=== PATIENT | male | born 1980 | race Caucasian/White ===

== ENCOUNTER 2019-10-24 16:17 | Emergency (ER) | payer OTHER, SELFPAY ==
[2019-10-24] VITALS (10 sets, daily range): BP systolic 138–150; BP diastolic 89–100; PULSE 91–100; RESP 14–21; TEMP 37.1; O2SAT 98–100
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
--- NOTE | 2019-10-24 16:30 | W.ED.GENAD ---
Discharge Plan Disposition Patient Disposition: HOME Condition: Stable Discharge Details Chief Complaint: Orthopedic Clinical Impression: Anterior shoulder dislocation Primary Care Provider: [place],Local ED Provider: Larry Pradhan Home Meds and New Rx's Prescriptions: Continued aspirin [Aspir-Low] 81 mg Tablet,Delayed Release (Dr/Ec) 81 mg PO DAILY RF: 0 lisinopril 5 mg Tablet 5 mg PO DAILY RF: 0 Multi-Vitamin HP/Minerals Capsule 1 cap PO DAILY RF: 0 Vitamin D3 4,000 unit Capsule 500 unit PO DAILY RF: 0 carvedilol 25 mg Tablet 12.5 mg PO BID RF: 0 Discharge Instructions Instructions: Shoulder Dislocation (ED) Additional Instructions: Take-home pack of Percocet given, may cause drowsiness and/or constipation. Please wear sling until reevaluation with orthopedics or your primary care provider in the next 3 to 5 days. Cool compresses as tolerated. [id number] Motrin as directed please watch for new or worsening symptoms and return to the ER for any concerns. An x-ray of your films were given with you today. Bring those to your next appointment Medical Decision Making <CANDE Lyles - Last Filed: 10/24/19 21:03> 39-year-old gentleman who fell onto his shoulder roughly 1 hour ago while skiing. No other injuries. Neuro, vascular, tendon intact. Examination is suspicious for dislocation. Will obtain x-ray and give 1 mg IM Dilaudid. X-ray confirms anterior dislocation. Discussed options with patient and family. He reports his pain is slightly better but now his shoulder feels tight and/or spasming. 10 IM Valium given. Patient was open to manipulation without conscious sedation initially. Attempted both external rotation and later a weighted traction with scapular manipulation, both were unsuccessful. Given this, discussed case with Dr. Gonsales who performed a conscious sedation. Please see his note. Patient and family had no additional questions or concerns after the reduction was completed. He did not want a prescription for any pain medication but was open to a take-home pack for this evening. A CD with his imaging was provided so he may bring this to his primary care provider and/or orthopedic provider in [place]. It should be noted that patient was discharged from the ER prior to virtual radiology reading the post reduction film. The postreduction film was read officially as possible displaced acute fracture fragment overlying the scapula, consider CT for further characterization. I was able to speak with both patient and his on the phone and relayed these findings. Emergent CT not indicated here in the ER, would not change the overall outcome and/or disposition this evening. Patient and understand this and will follow-up as an outpatient. They were encouraged to return to the ER for any new or worsening symptoms. Imaging Data Radiologic Study: Attestation: I personally reviewed and interpreted this imaging study as follows: Imaging: X-Ray My impression: Anterior dislocation HPI <CANDE Lyles - Last Filed: 10/24/19 21:03> General Mode of arrival: ambulatory. Date/Time Provider Initiated Documentation: 10/24/19 16:24. Limitations to Documentation: no limitations. Information obtained by: patient. HPI Narrative: 39-year-old gentleman with a history of colorectal cancer and mitral valve replacement presents having fallen while skiing landing on his right shoulder approximately 1 hour ago. He was wearing a helmet and has no other injuries. Patient is right-hand dominant. He reports moderate pain at rest, severe with movement. He did have some tingling in his right arm but there is no more tingling. Patient is able to move his elbow, wrist, fingers without difficulty. Related Data Home Medications Medication Instructions Recorded Confirmed Multi-Vitamin HP/Minerals 1 cap PO DAILY 10/24/19 10/24/19 Vitamin D3 500 unit PO DAILY 10/24/19 10/24/19 aspirin [Aspir-Low] 81 mg PO DAILY 10/24/19 10/24/19 carvedilol 12.5 mg PO BID 10/24/19 10/24/19 lisinopril 5 mg PO DAILY 10/24/19 10/24/19 Allergies Allergy/AdvReac Type Severity Reaction Status Date / Time No Known Allergies Allergy Unverified 10/24/19 16:22 General Stated Complaint: Orthopedic NGHIA: 3 Review of Systems <CANDE Lyles - Last Filed: 10/24/19 21:03> Constitutional Constitutional: Denies fatigue, Denies headache(s) and Denies weakness Eyes Eyes: Denies change in vision ENT Ears, Nose, Mouth, and Throat: Denies headache(s) Cardiovascular Cardiovascular: Denies chest pain and Denies dyspnea Respiratory Respiratory: Denies dyspnea Gastrointestinal Gastrointestinal: Denies abdominal pain, Denies nausea and Denies vomiting Musculoskeletal Musculoskeletal: Denies back pain and Reports tingling (At the time of injury, resolved now) Integumentary/Breasts Skin/Breast: Denies rash Neurologic Neurologic: Denies headache(s), Reports tingling (At the time of injury, resolved now), Denies paresthesias and Denies weakness Endocrine Endocrine: Denies fatigue PFSH <CANDE Lyles - Last Filed: 10/24/19 21:03> Social History Smoking/Tobacco Use Status: Never Alcohol Intake: current Alcohol Intake frequency: a few times a week Alcohol type: beer Substance use type: does not use Do you feel safe at home: Yes Do you feel safe in your relationship?: Yes Exam <CANDE Lyles - Last Filed: 10/24/19 21:03> Const General: cooperative, healthy appearing and acute distress mild Orientation: alert and awake HENMT Head: normal to inspection, normocephalic and atraumatic Mouth: moist mucous membranes Eyes Conjunctivae: conjunctivae normal Neck Neck: normal visual inspection, full ROM, trachea midline and supple Resp Effort & Inspection: normal respiratory effort and able to speak in complete sentences Auscultation: clear to auscultation bilaterally Cardio Rate: regular rate Rhythm: regular rhythm GI Palpation: soft and nontender Back/Spine/Pelvis Back: No back tenderness Skin General skin exam: no rashes or lesions noted Neuro General: alert, awake, moves all extremities and no focal motor deficits Cranial Nerves: CN's II-XI intact bilaterally Speech: speech normal Gait: normal gait Motor: muscle tone normal throughout Sensory Exam: no sensory deficits noted Extrem Right upper extremity: normal capillary refill and shoulder/upper arm Details: abnormal to inspection, tenderness, axillary nerve sensory function normal, normal ROM (Held in adduction) and deformity Location: of the shoulder joint Location: anteriorly; no abrasions, no lacerations, no ecchymosis and no crepitus; no cyanosis and no edema Psych Appearance: grossly normal Mental Status: mental status grossly normal Course <CANDE Lyles - Last Filed: 10/24/19 21:03> Vital Signs Vital signs: Vital Signs Temperature 37.1 C 10/24/19 16:26 Pulse 95 H 10/24/19 16:26 Respiratory Rate 16 10/24/19 16:26 Blood Pressure 150/100 H 10/24/19 16:26 Pulse Oximetry 99 10/24/19 16:26 Temperature 37.1 C 10/24/19 16:26 Temperature Source Temporal Artery Scan 10/24/19 16:26 Pulse 95 H 10/24/19 16:26 Respiratory Rate 16 10/24/19 16:26 Respiratory Effort Non-Labored 10/24/19 16:28 Blood Pressure 150/100 H 10/24/19 16:26 Blood Pressure Position Sitting 10/24/19 16:26 Pulse Oximetry 99 10/24/19 16:26 Oxygen Delivery Method Room Air 10/24/19 16:26 Oxygen Flow Rate 0 10/24/19 16:26 Pain Level 9 10/24/19 16:26 Procedures <CANDE Lyles - Last Filed: 10/24/19 21:03> Orthopedic Joint Reduction Joint #1: Time Out Performed: Yes Side: right Joint Reduction Location: shoulder Analgesia: procedural sedation Shoulder Technique Used (if applicable): external rotation Post-reduction neuro exam: intact and no change Post-reduction vascular: intact and no change Post Reduction X-Ray Obtained: Yes Post Reduction X-Ray Results: other (Successful reduction. Possible displaced acute fracture fragment overlying the scapula, consider CT for further characterization) Splint Applied: Yes (sling) Patient Tolerated Procedure: well and no complications <Jr Gonsales MD - Last Filed: 10/24/19 18:36> Procedural Sedation Indication: fracture/dislocation reduction ASA Class: II Time of Last PO Intake: 06:35 Preparation: alarm security or surveillance monitor applied, supplemental O2 applied, suction/airway equipment at bedside and IV secured IV Propofol dose (mg): 80 Patient Tolerated Procedure: well Complications: none
[2019-10-24] MEDS: HYDROmorphone 2 MG/ML VIAL 1 MG IM (16:50)
[2019-10-24] MEDS: diazePAM 10 MG/2 ML SYR IM (17:10)
--- NOTE | 2019-10-24 17:27 | DI.VRAD_ITS ---
PROCEDURE INFORMATION: Exam: XR Right Shoulder Exam date and time: 10/24/2019 4:52 PM Age: 39 years old Clinical indication: Pain; Shoulder; Right TECHNIQUE: Imaging protocol: XR Right shoulder. Views: 2 or more views. COMPARISON: No relevant prior studies available. FINDINGS: Bones/joints: There is anterior shoulder dislocation. No acutely displaced fractures. No aggressive osseous lesions. Soft tissues: Mild soft tissue swelling about the shoulder. Other findings: No acute findings in the visualized chest. IMPRESSION: Anterior shoulder dislocation. Dictated and Authenticated by: Morgan Espinoza MD. Ordering:FARRAH Juarez MD
--- NOTE | 2019-10-24 17:57 | NUR.NOTE ---
Nursing Note: attempt at placeing shoulder back in by the Provider . shoulder is not in place at this time pt is preparing to have cancious sedation
[2019-10-24] MEDS: Propofol 200 MG/20 ML VIAL 100 MG IVP (18:21)
--- NOTE | 2019-10-24 18:30 | DI.RAD_ITS ---
EXAM: XR SHOULDER RT COMP POST REDUC CLINICAL HISTORY: post reduction TECHNIQUE: COMPARISON: XR SHOULDER RT COMPLETE 2+V from 10/24/2019 FINDINGS: Two views were obtained and show reduction of the previously noted glenohumeral dislocation. No frac ture identified. IMPRESSION:
--- NOTE | 2019-10-24 19:22 | DI.VRAD_ITS ---
PROCEDURE INFORMATION: Exam: XR Right Shoulder Exam date and time: 10/24/2019 6:40 PM Age: 39 years old Clinical indication: Condition or disease; Other: Post reduction TECHNIQUE: Imaging protocol: XR Right shoulder. Views: 2 or more views. COMPARISON: CR XR SHOULDER RT COMPLETE 2+V 10/24/2019 4:52 PM FINDINGS: Bones/joints: Bone mineralization is normal. There has been interval successful reduction of the previously noted anterior right shoulder dislocation. There is a curvilinear bony opacity overlying the right scapula there is suspicious for a fracture fragment either of the humeral head or acetabular rim. Its origin is not entirely clear on the available images. Soft tissues: There are no radiopaque foreign bodies in the visualized soft tissues. IMPRESSION: 1. Successful reduction of the anterior right shoulder dislocation. 2. Possible displaced acute fracture fragment overlying the scapula. Consider CT scan of the shoulder for further characterization. Dictated and Authenticated by: Orestes Mejia MD. Ordering:FARRAH Juarez MD
== END 2019-10-24 19:25 | disposition home or self-care (01) ==
PROVIDERS: Emergency Provider Physician Assistant
DX: M25.511 Pain in right shoulder (principal); S43.014A Anterior dislocation of right humerus, initial encounter; V00.321A Fall from snow-skis, initial encounter; R20.2 Paresthesia of skin
CPT/HCPCS: 23650; 73030; 96372; 96374; 99284; 99283; J2704; J3360; L3650

== ENCOUNTER 2020-05-25 02:33 | Outpatient (CLI) | payer OTHER, SELFPAY ==
[2020-05-25 08:13] LABS: Abs Immature Grans 0.01 10^3/uL (0.0-0.06); Absolute Basophil Count 0.05 10^3/uL (0.0-0.2); Absolute Lymphocyte Count 1.24 10^3/uL (1.2-3.4); Absolute Monocyte Count 0.32 10^3/uL (0.1-0.8); Absolute Neutrophil Count 1.72 10^3/uL (1.2-6.7); Basophils % 1.4; Eosinophils % 5.6; HCT 39.8 % (40.0-50.0); HGB 14.3 g/dL (13.5-17.5); Immature Grans % 0.3; MCH 32.8 pg (27.0-33.0); MCHC 35.9 % (32.0-36.0); MCV 91.3 fL (80-95); MPV 9.9 fL (8.0-11.0); Neutrophils % 48.7; Nucleated RBC 0 %; Platelet Count 171 10^3/uL (130-400); RBC 4.36 10^6/uL (4.36-5.78); RDW 12.3 % (11.8-14.1); RDW-SD 41.1 fL; WBC 3.54 10^3/uL (4.4-10.8)
[2020-05-25 08:44] LABS: ALT 38 U/L (16-63); AST 19 U/L (15-37); Albumin 4.1 g/dL (3.4-5.0); Alkaline Phosphatase 48 U/L (46-116); Anion Gap 8.6 mmol/L (3-11); BUN 9 mg/dL (7-18); Bilirubin, Total 0.5 mg/dL (0.2-1.0); CO2 27.4 mmol/L (21.0-32.0); CREATININE 0.69 mg/dL (0.70-1.30); Calcium 8.7 mg/dL (8.5-10.1); Chloride 104 mmol/L (98-107); Glucose 94 mg/dL (74-106); Potassium 4.3 mmol/L (3.5-5.1); Sodium 140 mmol/L (136-145); Total Protein 7.4 g/dL (6.4-8.2)
== END 2020-05-25 02:53 ==
DX: C20 Malignant neoplasm of rectum (principal); D70.1 Agranulocytosis secondary to cancer chemotherapy; R23.9 Unspecified skin changes; I34.0 Nonrheumatic mitral (valve) insufficiency; R30.0 Dysuria; Z80.3 Family history of malignant neoplasm of breast; Z80.0 Family history of malignant neoplasm of digestive organs; C44.311 Basal cell carcinoma of skin of nose
CPT/HCPCS: 36415; 80053; 82306; 82378; 85025

== ENCOUNTER 2021-01-10 11:28 | Outpatient (CLI) | payer OTHER, SELFPAY ==
[2021-01-10 12:37] LABS: HCT 28.5 % (40.0-50.0); MCH 32.1 pg (27.0-33.0); MCHC 35.1 % (32.0-36.0); MCV 91.3 fL (80-95); MPV 9.7 fL (8.0-11.0); Platelet Count 165 10^3/uL (130-400); RBC 3.12 10^6/uL (4.36-5.78); RDW 11.9 % (11.8-14.1); RDW-SD 39.8 fL
[2021-01-10 12:49] LABS: ALT 144 U/L (16-63); AST 42 U/L (15-37); Albumin 3.3 g/dL (3.4-5.0); Alkaline Phosphatase 59 U/L (46-116); Anion Gap 8.5 mmol/L (3-11); BUN 23 mg/dL (7-18); Bilirubin, Total 0.4 mg/dL (0.2-1.0); CO2 28.5 mmol/L (21.0-32.0); Calcium 8.8 mg/dL (8.5-10.1); Chloride 106 mmol/L (98-107); Estimated GFR 36.82 (mL/min/1.73m2); Glucose 111 mg/dL (74-106); Potassium 3.6 mmol/L (3.5-5.1); Sodium 143 mmol/L (136-145); Total Protein 6.7 g/dL (6.4-8.2)
[2021-01-10 12:50] LABS: Prothrombin Time 10.3 sec (9.3-11.0)
== END 2021-01-10 11:29 | disposition home or self-care (01) ==
LOC: LBO 11:36
DX: C78.7 Secondary malignant neoplasm of liver and intrahepatic bile duct (principal)
CPT/HCPCS: 36415; 80053; 85027; 85610

== ENCOUNTER 2021-01-16 03:26 | Outpatient (CLI) | payer OTHER, SELFPAY ==
[2021-01-16 11:27] LABS: ALT 60 U/L (16-63); AST 18 U/L (15-37); Albumin 4.1 g/dL (3.4-5.0); Alkaline Phosphatase 62 U/L (46-116); Anion Gap 10.5 mmol/L (3-11); BUN 19 mg/dL (7-18); Bilirubin, Total 0.4 mg/dL (0.2-1.0); CO2 29.5 mmol/L (21.0-32.0); CREATININE 1.1 mg/dL (0.70-1.30); Calcium 9.2 mg/dL (8.5-10.1); Chloride 103 mmol/L (98-107); Glucose 96 mg/dL (74-106); Potassium 3.9 mmol/L (3.5-5.1); Sodium 143 mmol/L (136-145); Total Protein 7.6 g/dL (6.4-8.2)
== END 2021-01-16 03:27 | disposition home or self-care (01) ==
LOC: LBO 03:26
DX: C78.7 Secondary malignant neoplasm of liver and intrahepatic bile duct (principal)
CPT/HCPCS: 36415; 80053

== ENCOUNTER 2021-01-31 02:54 | Outpatient (CLI) | payer OTHER, SELFPAY ==
[2021-01-31 12:21] LABS: Anion Gap 10.5 mmol/L (3-11); BUN 11 mg/dL (7-18); CO2 28.5 mmol/L (21.0-32.0); CREATININE 0.8 mg/dL (0.70-1.30); Calcium 9.7 mg/dL (8.5-10.1); Chloride 103 mmol/L (98-107); Glucose 89 mg/dL (74-106); Potassium 4.2 mmol/L (3.5-5.1); Sodium 142 mmol/L (136-145)
== END 2021-01-31 02:55 | disposition home or self-care (01) ==
LOC: LBO 02:54
DX: I48.20 Chronic atrial fibrillation, unspecified (principal)
CPT/HCPCS: 36415; 80048

== ENCOUNTER 2021-02-22 02:16 | Outpatient (CLI) | payer OTHER, SELFPAY ==
[2021-02-22 16:20] LABS: Anion Gap 7.9 mmol/L (3-11); BUN 9 mg/dL (7-18); CO2 30.1 mmol/L (21.0-32.0); CREATININE 0.7 mg/dL (0.70-1.30); Calcium 9.1 mg/dL (8.5-10.1); Chloride 104 mmol/L (98-107); Glucose 93 mg/dL (74-106); Sodium 142 mmol/L (136-145)
== END 2021-02-22 02:17 | disposition home or self-care (01) ==
LOC: LBO 02:17
PROVIDERS: Visit Provider Internal Medicine
DX: I10 Essential (primary) hypertension (principal)
CPT/HCPCS: 36415; 80048

== ENCOUNTER 2021-06-05 04:04 | Outpatient (CLI) | payer OTHER, SELFPAY ==
[2021-06-05 09:53] LABS: Potassium 4.4 mmol/L (3.5-5.1); Sodium 142 mmol/L (136-145)
[2021-06-05 09:57] LABS: Anion Gap 5.4 mmol/L (3-11); BUN 12 mg/dL (7-18); CO2 30.6 mmol/L (21.0-32.0); CREATININE 0.7 mg/dL (0.70-1.30); Calcium 8.9 mg/dL (8.5-10.1); Chloride 106 mmol/L (98-107); Glucose 93 mg/dL (74-106); Magnesium 1.8 mg/dL (1.8-2.4)
== END 2021-06-05 04:05 | disposition home or self-care (01) ==
LOC: LBO 04:04
PROVIDERS: Visit Provider Internal Medicine
DX: I42.8 Other cardiomyopathies (principal)
CPT/HCPCS: 36415; 80048; 83735

== ENCOUNTER 2022-01-04 03:51 | Outpatient (CLI) | payer OTHER, SELFPAY ==
[2022-01-04 07:31] LABS: Abs Immature Grans 0.01 10^3/uL (0.0-0.06); Absolute Basophil Count 0.04 10^3/uL (0.0-0.2); Absolute Eosinophil Count 0.17 10^3/uL (0.0-0.7); Absolute Monocyte Count 0.36 10^3/uL (0.1-0.8); Absolute Neutrophil Count 1.92 10^3/uL (1.2-6.7); Eosinophils % 4.3; HCT 39.5 % (40.0-50.0); HGB 13.6 g/dL (13.5-17.5); Immature Grans % 0.3; Lymphocytes % 37.5; MCH 32.5 pg (27.0-33.0); MCHC 34.4 % (32.0-36.0); MCV 95 fL (80-95); MPV 9.7 fL (8.0-11.0); Neutrophils % 47.9; Platelet Count 165 10^3/uL (130-400); RBC 4.18 10^6/uL (4.36-5.78); RDW 12.4 % (11.8-14.1)
[2022-01-04 08:53] LABS: ALT 76 U/L (16-63); AST 35 U/L (15-37); Albumin 4.1 g/dL (3.4-5.0); Alkaline Phosphatase 51 U/L (46-116); Anion Gap 9.3 mmol/L (3-11); BUN 12 mg/dL (7-18); Bilirubin, Total 0.6 mg/dL (0.2-1.0); CO2 27.7 mmol/L (21.0-32.0); CREATININE 0.7 mg/dL (0.70-1.30); Calcium 8.5 mg/dL (8.5-10.1); Calculated LDL 130 mg/dL (<100); Chloride 105 mmol/L (98-107); Cholesterol 217 mg/dL (<200); Glucose 97 mg/dL (74-106); HDL Cholesterol 57 mg/dL (40-60); Potassium 4.3 mmol/L (3.5-5.1); Sodium 142 mmol/L (136-145); TSH 1.58 uIU/mL (0.36-3.74); Total Protein 7.2 g/dL (6.4-8.2); Triglyceride 153 mg/dL (<150)
[2022-01-06 11:53] LABS: Apolipoprotein B, S 98 mg/dL
== END 2022-01-04 03:52 | disposition home or self-care (01) ==
LOC: LBO 03:51
PROVIDERS: Visit Provider Internal Medicine Cardiovascular Disease
DX: I10 Essential (primary) hypertension (principal); I48.0 Paroxysmal atrial fibrillation; Q23.1 Congenital insufficiency of aortic valve; Z13.220 Encounter for screening for lipoid disorders
CPT/HCPCS: 36415; 80053; 80061; 82172; 84443; 85025

== ENCOUNTER 2023-03-09 11:46 | Emergency (ER) | payer OTHER, SELFPAY ==
[2023-03-09] VITALS (19 sets, daily range): BP systolic 127–152; BP diastolic 82–98; PULSE 85–93; RESP 18; TEMP 36.7; O2SAT 92–97
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
--- NOTE | 2023-03-09 12:30 | DI.CT_ITS ---
Exam(s) CT BRAIN NECK CTA EXAM: CT BRAIN NECK CTA CLINICAL HISTORY: Right neck pain. TECHNIQUE: Imaging Protocol: Axial CT angiography was performed with multi-slice acquisition and mu lti-planar and 3D reconstructions. CONTRAST MATERIAL: Intravenous: Omnipaque 350 Contrast volume:100 COMPARISON: No exams were available for comparison FINDINGS: CT Head W/O and W contrast: Ventricles and Extra axial spaces: Normal in size and morphology for the patient's age. Hemorrhage: None. Cerebral parenchyma: Normal. Midline shift: None. Brainstem/Cerebellum: Normal. Calvarium: Normal. Visualized Paranasal sinuses/Mastoids: Clear. Soft Tissues: Unremarkable. Enhancement: Normal. CTA Brain W: Internal Carotid Arteries: Petrous: Normal. Cavernous: Normal. Cerebral: Normal. Middle Cerebral Arteries: Right: No aneurysm, occlusion or significant stenosis. Left: No aneurysm, occlusion or significant stenosis. Anterior Cerebral Arteries: Right: No aneurysm, occlusion or significant stenosis. Left: No aneurysm, occlusion or significant stenosis. Posterior cerebral Arteries: Right: No aneurysm, occlusion or significant stenosis. Left: No aneurysm, occlusion or significant stenosis. Vertebral Arteries: Right: No aneurysm, occlusion or significant stenosis. Left: No aneurysm, occlusion or significant stenosis. Basilar Artery: No aneurysm, occlusion or significant stenosis. CTA Neck W: Common Carotid: Right: No dissection, occlusion or significant stenosis. Left: No dissection, occlusion or significant stenosis. External Carotid: Right: No dissection, occlusion or significant stenosis. Left: No dissection, occlusion or significant stenosis. Internal Carotid: Right: No dissection, occlusion or significant stenosis. Left: No dissection, occlusion or significant stenosis. Vertebral Artery: Right: No dissection, occlusion or significant stenosis. Left: No dissection, occlusion or significant stenosis. Lung Apices: Normal. No pneumothorax. Bones: Comminuted fracture of the proximal right clavicle with surrounding hematoma. Sternal wires. Soft Tissues: Normal. IMPRESSION: 1. Normal CTA examination of the [place]. 2. Unremarkable CT Head. 3. Normal CTA examination of the neck. . No evidence of vascular injury or dissection. 4. Comminuted fracture of the proximal right clavicle. RADIATION DOSE DELIVERED: 2,136.7mGy.cm Total DLP DATA REPOSITORY: All CT scans at this facility are submitted to the National Radiology Data Registry (NRDR) Dose Index Registry (DIR) with the [employer] (ACR). RADIATION OPTIMIZATION: All CT scans at this facility use at least one of these dose optimization te chniques: automated exposure control; mA and/or kV adjustment per patient size (includes targeted exa ms where dose is matched to clinical indication); or iterative reconstruction.
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
[2023-03-09 12:57] LABS: Abs Immature Grans 0.02 10^3/uL (0.0-0.06); Absolute Basophil Count 0.05 10^3/uL (0.0-0.2); Absolute Eosinophil Count 0.11 10^3/uL (0.0-0.7); Absolute Lymphocyte Count 1.18 10^3/uL (1.2-3.4); Absolute Monocyte Count 0.65 10^3/uL (0.1-0.8); Absolute Neutrophil Count 6.34 10^3/uL (1.2-6.7); Basophils % 0.6; Eosinophils % 1.3; HCT 41.9 % (40.0-50.0); HGB 14.8 g/dL (13.5-17.5); Immature Grans % 0.2; Lymphocytes % 14.1; MCH 32.9 pg (27.0-33.0); MCHC 35.3 % (32.0-36.0); MCV 93 fL (80-95); MPV 9.9 fL (8.0-11.0); Monocytes % 7.8; Platelet Count 161 10^3/uL (130-400); RDW 12.2 % (11.8-14.1); RDW-SD 41.9 fL; WBC 8.35 10^3/uL (4.4-10.8)
[2023-03-09] MEDS: fentaNYL 100 MCG/2 ML VIAL 75 MCG IVP (13:10)
[2023-03-09] MEDS: Omnipaque 350 MG/ML 500 ML BTL-Imaging package 85 ML IJ ×2 (13:11→13:40)
[2023-03-09] MEDS: Normal Saline 500 ML IV (13:11)
[2023-03-09 13:24] LABS: ALT 119 U/L (16-63); AST 62 U/L (15-37); Albumin 4.1 g/dL (3.4-5.0); Alkaline Phosphatase 57 U/L (46-116); Anion Gap 10.5 mmol/L (3-11); BUN 12 mg/dL (7-18); Bilirubin, Total 0.6 mg/dL (0.2-1.0); CO2 27.5 mmol/L (21.0-32.0); CREATININE 0.8 mg/dL (0.70-1.30); Calcium 9.1 mg/dL (8.5-10.1); Chloride 105 mmol/L (98-107); Estimated GFR 111.92 (mL/min/1.73m2); Glucose 120 mg/dL (74-106); Potassium 3.9 mmol/L (3.5-5.1); Sodium 143 mmol/L (136-145); Total Protein 7.5 g/dL (6.4-8.2)
[2023-03-09 13:32] LABS: ETHANOL BLOOD < 3.0 mg/dL (<10); Lipase 34 U/L (16-77); Troponin I < 50 ng/L (<or=60)
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
[2023-03-09] MEDS: Ondansetron O.D.T. 4 MG TABEF PO (14:58)
[2023-03-09] MEDS: oxyCODONE 5 MG TAB PO (14:58)
[2023-03-09] MEDS: Acetaminophen 500 MG TAB 1000 MG PO (14:58)
[2023-03-09] MEDS: Ketorolac 15 MG/ML VIAL IVP (14:58)
== END 2023-03-09 15:18 | disposition home or self-care (01) ==
PROVIDERS: Emergency Provider Emergency Medicine
DX: S42.024A Nondisplaced fracture of shaft of right clavicle, initial encounter for closed fracture (principal); S70.211A Abrasion, right hip, initial encounter; S50.312A Abrasion of left elbow, initial encounter; V18.4XXA Pedal cycle driver injured in noncollision transport accident in traffic accident, initial encounter; Y93.55 Activity, bike riding; Y92.482 Bike path as the place of occurrence of the external cause; Y99.9 Unspecified external cause status; Z79.82 Long term (current) use of aspirin; Z95.2 Presence of prosthetic heart valve; Z79.899 Other long term (current) drug therapy; M54.2 Cervicalgia
CPT/HCPCS: 70496; 70498; 74177; 76604; 76705; 76857; 80053; 83690; 86850; 86900; 86901; 96361; 96374; 96375; 99285; 71260; 80320; 83605; 84484; 85025; 99284; J1885; J3010

== ENCOUNTER 2023-04-01 02:46 | Outpatient (CLI) | payer OTHER, SELFPAY ==
[2023-04-02 09:19] LABS: CEA <0.5 ng/mL (See Note)
== END 2023-04-01 02:47 | disposition home or self-care (01) ==
PROVIDERS: Referring Provider Internal Medicine Medical Oncology; Visit Provider Internal Medicine Medical Oncology
DX: C20 Malignant neoplasm of rectum (principal)
CPT/HCPCS: 36415; 82378

== ENCOUNTER → 2024-02-03 15:14 | Outpatient (CLI) | payer OTHER, SELFPAY ==
--- NOTE | 2024-02-03 14:15 | DI.RAD_ITS ---
Exam(s) XR KNEE RT 4V AP,LAT,DINORA,PAT EXAM: XR KNEE RT 4V AP,LAT,DINORA,PAT CLINICAL HISTORY: right knee pain, patella pain M25.561 PAIN RT KNEE. TECHNIQUE: 2D digital imaging was performed of the right knee. Four views obtained. Merchant, AP, la teral and PA tunnel views were obtained. COMPARISON: No priors for comparison. FINDINGS: BONES: No acute fracture is present. No bony destructive lesion is seen. JOINTS: The knee is normally aligned. No joint effusion is seen. SOFT TISSUE: Normal. There is an old well corticated osseous density anterior to the anterior tibial tuberosity. IMPRESSION: No acute abnormality. DATA REPOSITORY: RADIATION DOSE DELIVERED:
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
== END ==
PROVIDERS: Visit Provider Physician Assistant
DX: M25.561 Pain in right knee (principal); S20.212A Contusion of left front wall of thorax, initial encounter; X58.XXXA Exposure to other specified factors, initial encounter
CPT/HCPCS: 71046; 71100; 73564

== ENCOUNTER 2025-04-21 08:46 | Outpatient (CLI) | payer OTHER, SELFPAY ==
[2025-04-21 18:18] LABS: CEA <0.5 ng/mL (See Note)
== END 2025-04-21 08:47 | disposition home or self-care (01) ==
LOC: LBO 08:46
PROVIDERS: Visit Provider Internal Medicine Medical Oncology
DX: Z85.048 Personal history of other malignant neoplasm of rectum, rectosigmoid junction, and anus (principal); Z85.89 Personal history of malignant neoplasm of other organs and systems
CPT/HCPCS: 82378